=== PATIENT | male | born 1930 | race Caucasian/White ===

== ENCOUNTER → 2016-09-28 | Outpatient (CLI) | payer OTHER ==
[~2016-09-28] VITALS: Ht 172.7 cm; Wt 76.6 kg
[~2016-09-28] MED LIST: ASPIRIN EC81 M1 PO; COUMADIN 2 MG TA2 M1 PO; COUMADIN 5 MG TA5 M1 PO; DICLOFENAC SOD100 GM TP; ENALAPRIL MALEAT5 M1 PO; FISH OIL 1,0001 EAC7 PO; FLOMAX PO; FOLIC ACID 40400 MC1 PO; HYDROCHLOROTHIA25 M2 PO; IRON236 MG PO; LASIX 40 MG TAB40 M2 PO; LISINOPRIL10 MG PO; MOBIC15 MG PO; MULTIVITAMINS PO; PERCOCET 7.5-31 EACH PO; PROTONIX40 M1 PO; SIMVASTATIN40 MG PO; TAMSULOSIN HCL0.4 MG PO; TIZANIDINE HCL 22 M1 PO; TIZANIDINE HCL2 M1 PO; VESICARE 5 MG TA5 M1 PO; ZANTAC 150MG T150 M1 PO; ZOCOR PO
--- NOTE | ~2016-09-28 | HPC ---
[facility] [address] [place] [address] PAIN MANAGEMENT CONSULTATION Name: AGUEROJOHANNY Room #: REG MAYE Hightower#: [id number] Admission: 09/28/16 Attend Phys: Richie Cameron DO Discharge: Date of : 30 Report #: [id number] THIS REPORT FOR: //name// CC: Sal Cameron The patient is a very pleasant 86-year-old gentleman being treated for myofascial pain, history of thoracolumbar spondylosis and greater occipital neuralgia. He has done well with occasional trigger point injections, takes meloxicam 15 mg on a nondaily basis, last injection was 06/11/2016 with excellent relief, greater than 80% for several months, pain has gradually begun to recur in the mid back area, has discrete trigger points in 4 muscle groups, left and right lower thoracic paravertebral muscles and left and right upper lumbar paravertebral muscles. No radicular symptoms are noted. IMPRESSION: Myofascial pain. RECOMMENDATION: Trigger point injections today. Ice to the area, continue stretching and meloxicam p.r.n. on a nondaily basis and follow simply as needed. The patient cautioned about risk of pneumothorax with injection over the thoracic, lumbar paravertebral muscles. ASSESSMENT: Myofascial pain. PROCEDURE NOTE: Trigger point injections x 4. PROCEDURE: After written informed consent was obtained, the patient was placed in prone position. Skin overlying the low thoracic and upper lumbar paravertebral muscles, were cleansed with alcohol, using a 25-gauge needle, 40 mg triamcinolone plus 50:50 mix of 5 mL of 0.5% preservative-free bupivacaine plus 5 mL of 1.5% preservative-free Xylocaine with 1:200,000 epinephrine was injected distributed amongst the 4 discrete muscle groups and with multiple trigger points noted. [place] were removed. The area was cleansed, Band-Aids applied. The patient monitored for an appropriate period of time, discharged in good and stable condition. Followup as p.r.n. <ELECTRONICALLY SIGNED> By: Richie Cameron DO 10/03/16 1607 1606 2255 Richie Cameron DO /nt
[2016-09-28 13:56] VITALS: BP 142/54
== END ==
LOC: PAIN 07:23
DX: M79.1 Myalgia (principal); M47.815 Spondylosis without myelopathy or radiculopathy, thoracolumbar region; I10 Essential (primary) hypertension; Z87.891 Personal history of nicotine dependence

== ENCOUNTER → 2017-01-14 | Outpatient (CLI) | payer OTHER ==
[~2017-01-14] VITALS: Ht 172.7 cm; Wt 74.6 kg
--- NOTE | ~2017-01-14 | HPC ---
[facility] [address] [place] [address] PAIN MANAGEMENT CONSULTATION Name: AGUEROJOHANNY Room #: REG [facility] Campbell#: [id number] Admission: 01/14/17 Attend Phys: Richie Cameron DO Discharge: Date of : 30 Report #: [id number] THIS REPORT FOR: //name// CC: Sal Cameron The patient is a very pleasant 86-year-old gentleman, long treated for symptomatic myofascial pain. He does well with occasional trigger point injections, last trigger point injection was in May 2016. Prior he had had injection in January 2016 and June 2015. 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 Pain is in the mid to low back area from about T7 down to L4 bilateral. He has 6 discrete trigger point muscle groups, left and right each, low thoracic paravertebral muscles, upper lumbar paravertebral muscles and overlying latissimus dorsi. The patient notes pain is 0 at present, 8 with activity. PHYSICAL EXAMINATION: Shows an 86-year-old gentleman, BMI is 25 kilograms per meter squared. Vital signs stable. Alert and oriented to person, place and time, judged to be a reasonable historian. Rises from chair easily. Pain in the mid back area, is exacerbated with rotation and side bending, palpable muscle spasm and trigger points x 6 as noted above. ASSESSMENT: Myofascial pain. RECOMMENDATIONS: Trigger point injections x 6. Follow up simply as needed, ice to the area today. PROCEDURE NOTE: After written and informed consent was obtained including risk of infection and possible pneumothorax, the patient wished to proceed, was placed in the prone position. Skin overlying 6 discrete trigger points including the left and right low thoracic paravertebral muscles, left and right upper lumbar paravertebral muscles and overlying the left and right latissimus dorsi were identified, cleansed with alcohol. Using a 25-gauge needle, 80 mg triamcinolone plus 5 mL of 0.5% preservative-free bupivacaine plus 5 mL of 1.5% preservative-free Xylocaine with 1:200,000 epinephrine was injected. This has been amongst each of the 6 discrete triggers. Needle was removed, area was cleansed, Band-Aids applied. The patient was monitored for an appropriate period of time, discharged in good and stable condition. Follow up is as needed, use ice to the area today. Continue stretching. <ELECTRONICALLY SIGNED> By: Richie Cameron DO 01/16/17 0932 1521 0135 Richie Cameron DO /nt
[2017-01-14 13:11] VITALS: BP 129/59
== END | disposition home or self-care (01) ==
LOC: PAIN 01-11 06:51
DX: M79.1 Myalgia (principal); G89.29 Other chronic pain; Z87.891 Personal history of nicotine dependence; Z98.890 Other specified postprocedural states

== ENCOUNTER → 2017-07-04 | Outpatient (CLI) | payer OTHER ==
[~2017-07-04] VITALS: Ht 172.7 cm; Wt 75.8 kg
--- NOTE | ~2017-07-04 | HPC ---
[facility] [address] [place] [address] PAIN MANAGEMENT CONSULTATION Name: AGUEROJOHANNY Room #: REG MAYE Hightower#: [id number] Admission: 07/04/17 Attend Phys: Richie Cameron DO Discharge: Date of : 30 Report #: [id number] THIS REPORT FOR: //name// CC: Sal Cameron The patient is a delightful 86-year-old gentleman, typically treated for myofascial pain. We have done occasional trigger point injections, typically once or twice a year. Last trigger point injections were in December of this year. Prior to that, 2 trigger point injections in 2015. He uses Meloxicam on a nondaily basis. We discussed risks of coronary artery disease and risk factors with daily nonsteroidal anti-inflammatory use. He also does use a topical Voltaren gel, again with low (6-7% systemic absorption) primarily for his neck pain. He returns to pain clinic today noting that the last injection did afford a very good relief. 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 PHYSICAL EXAMINATION: Shows an 86-year-old gentleman, BMI is 25.4 kg/m2. Vital signs are stable as noted in the EMR. Rises from chair easily. Gait is tandem. Diffuse tenderness in the neck, though no discrete trigger points are noted here. He does have trigger points in the low thoracic and upper lumbar paravertebral muscles, bilateral, and the overlying latissimus dorsi, bilateral. Pain is exacerbated with some range of motion. Lower extremity strength is symmetric. ASSESSMENT: Myofascial pain with multiple trigger points. RECOMMENDATION: I have renewed the patient's Meloxicam 15 mg prescription for 30 tablets with 3 refills, again the patient takes it on a nondaily basis, perhaps 3-4 a week. I also renewed Voltaren gel, which he uses topically on a near daily basis, typically simply in the morning and primarily on his neck. PROCEDURE NOTE: After written and informed consent including risk of pneumothorax and infection, the patient wished to proceed with trigger point injections. He was placed prone. Skin overlying the trigger points identified in the low thoracic paravertebral muscles, left to right, upper lumbar paravertebral muscles, left to right, and overlying latissimus dorsi, left and right, were identified, cleansed with alcohol. Using a 25-gauge needle, approximately 30 mg triamcinolone plus 8 mL of 50:50 mix of 0.5% preservative-free bupivacaine plus 1.5% preservative-free Xylocaine with 1:200,000 epi was injected into and around the discrete 6 trigger points. All needles were removed, the area was cleansed, Band-Aids applied. The patient was monitored for an appropriate period of time, discharged in good and stable [address] [address] PAIN MANAGEMENT CONSULTATION Name: JOHANNY AGUERO Room #: REG MAYE Hightower#: [id number] Admission: 07/04/17 Attend Phys: Richie Cameron DO Discharge: Date of : 30 Report #: [id number] condition, told to use ice to the area today, continue range of motion stretch. Report to the ER if he has any change in symptoms, i.e., shortness of breath, acute chest pain, etc. <ELECTRONICALLY SIGNED> By: Richie Cameron DO 07/04/17 1527 1236 1404 Richie Cameron DO /nt
[2017-07-04 11:04] VITALS: BP 124/50
== END | disposition home or self-care (01) ==
LOC: PAIN 06-27 12:47
DX: M79.1 Myalgia (principal); G89.29 Other chronic pain; I25.10 Atherosclerotic heart disease of native coronary artery without angina pectoris; Z87.891 Personal history of nicotine dependence; Z88.0 Allergy status to penicillin; Z79.899 Other long term (current) drug therapy; Z98.890 Other specified postprocedural states

== ENCOUNTER → 2018-08-08 | Outpatient (CLI) | payer OTHER ==
[~2018-08-08] VITALS: Ht 172.7 cm; Wt 74.4 kg
[2018-08-08 12:46] VITALS: BP 155/62
== END | disposition home or self-care (01) ==
LOC: PAIN 07:27
DX: M79.18 Myalgia, other site (principal); Z88.0 Allergy status to penicillin; Z79.899 Other long term (current) drug therapy; Z87.891 Personal history of nicotine dependence

== ENCOUNTER → 2019-03-18 | Outpatient (CLI) | payer OTHER ==
[~2019-03-18] VITALS: Ht 172.7 cm; Wt 73.0 kg
[~2019-03-18] MED LIST changes: +TRAMADOL 50 MG50 MG PO; +VESICARE 5 MG TA5 MG PO
--- NOTE | ~2019-03-18 | HPC ---
[facility] [address] [place] [address] PAIN MANAGEMENT CONSULTATION Name: JOHANNY AGUERO Room #: REG [facility] Andrew.#: [id number] Admission: 03/18/19 ������������������ Attend Phys: Althea Galo MD Discharge: ������������������ Date of : 30 Report #: [id number] THIS REPORT FOR: //name// CC: GUANAKITO Galo DATE OF SERVICE: 03/18/2019 CHIEF COMPLAINT: Pain in the back that was helped by injections has returned. HISTORY: The patient is an 88-year-old gentleman who has been seen in the past because of myofascial pain in his back. He underwent a trigger point injection in 07/2018. He noted significant improvement in the back pain. He returns today indicating that his pain has reoccurred. He has pain in the mid back area and rates it as a 2/10. Describes it as chronic, crampy, achy, and intermittent. 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 Notes his pain improves somewhat when he rests as well as when he reclines in a chair. He denies any new pains other than the usual discomfort in the low back area. He has tried Voltaren gel. ALLERGIES: PENICILLIN. CURRENT MEDICATIONS: Meloxicam 15 mg, diclofenac gel to the affected area of his neck b.i.d., iron 236 mg, lisinopril 10 mg, Protonix 40 mg b.i.d., Lasix 20 mg daily, simvastatin 40 mg, multivitamins, folic acid , and Flomax. PAIN CLINIC ASSESSMENT/PQRS: 1. The patient is not being treated for rheumatoid arthritis or osteoarthritis. 2. Height 5 feet 8 inches, weight 161 pounds, BMI is 24.5. 3. Vital signs: Blood pressure 115/77, pulse 65, respiratory rate 16, room air saturation 97%. 4. Pain intensity 11/02. 5. Fall history. The patient has not fallen in the last 3 months. 6. Blood thinner. The patient is not on a blood thinning medications. 7. Hypertension. The patient is being treated for hypertension. 8. Opiates greater than 6 weeks. The patient received medication from 1 source the pain clinic. 9. Risk assessment tool, low for opioid use. 10. Functional assessment tool . 11. Recreational drug use. The patient denies use of recreational drugs. 12. Tobacco: The patient is a former smoker. 13. Alcohol: The patient denies use of alcoholic beverages. PHYSICAL EXAMINATION: GENERAL: The patient is a well-developed, well-nourished white male. Appears [facility] [address] [place] [address] PAIN MANAGEMENT CONSULTATION Name: LACIJOHANNY Room #: REG MAYE Hightower#: [id number] Admission: 03/18/19 ������������������ Attend Phys: Althea Galo MD Discharge: ������������������ Date of : 30 Report #: [id number] his stated age. He is alert and oriented x 3. His affect is appropriate. Speech is fluent. HEENT: Normocephalic, atraumatic. Extraocular eye muscles intact. Sclerae nonicteric. Mucous membranes are moist. NECK: Without adenopathy or JVD. HEART: Regular rate. ABDOMEN: Nontender. Bowel sounds present. EXTREMITIES: Upper extremity muscle strength is judged to be 4+1 for the major muscle groups in the upper extremity. The patient has some pain and discomfort in the low back area. This pain is described as achy, crampy, and intermittent. IMPRESSION: 1. Myofascial pain. 2. History of cervical spondylosis. 3. Hypertension. RECOMMENDATIONS: We discussed treatment options with the patient. Risks and benefits of a trigger point injection were discussed. Possible complications of the procedure, which could include an increased muscle pain, no improvement in pain, worsening of discomfort and the patient elects to proceed. PROCEDURE NOTE: The patient was placed in a sitting position on the table. He was placed perpendicular to the . A chair was placed under his feet for support. The patient's back was sterilely prepped with a Betadine solution and allowed to dry. A trigger point was noted in the lower mid back at approximately T7/T8. This area was then palpated. The trigger point was noted. A 25-gauge needle was then advanced into the area of discomfort. Aspiration was negative for air. Total of 8 mL of 0.5% bupivacaine and 40 mg triamcinolone was injected. The patient tolerated the procedure well. There were no complications. His pain decreased to 0 at the time of discharge. He will follow up in the future as needed. We would like to thank you for letting us participate in his care. We hope he continues to improve. ��������������������������������������������� ���������������������������������������� By: ��������������������������������������������� 0822 1453 Althea Galo MD /PAOLA
[2019-03-18 11:23] VITALS: BP 115/77
== END | disposition home or self-care (01) ==
LOC: PAIN 06:54
DX: M79.18 Myalgia, other site (principal); G89.29 Other chronic pain; I10 Essential (primary) hypertension; Z87.891 Personal history of nicotine dependence; Z88.0 Allergy status to penicillin; Z79.899 Other long term (current) drug therapy; Z98.890 Other specified postprocedural states

== ENCOUNTER 2019-09-04 10:41 | Inpatient (IN) | payer OTHER ==
[~2019-09-04] VITALS: Ht 172.7 cm; Wt 73.5 kg
[~2019-09-04 10:41] MED LIST changes: +MELOXICAM15 MG PO
[2019-09-04 11:30] VITALS: BP 156/44
[2019-09-04 12:18] LABS: CALCIUM 9.1 mg/dL (8.5-10.1); CREATININE 1.4 mg/dL (0.7-1.3)
--- NOTE | 2019-09-04 15:29 | O ---
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 PROCEDURE: Excision of loosened patellar component, right total knee arthroplasty. SURGEON: John Thorne MD INDICATIONS: This 89-year-old gentleman underwent right total knee replacement a number of years ago. He is functioning very well and is fully independent. He is in an assisted living facility, but seems to be fully alert and fully functional and is ambulating independently without the use of a cane or walker; however, he has a small sinus tract along the medial border of the right knee. Clinical and radiographic exam suggest a complete loosening of the patellar component, which is now positioned in the subcutaneous tissues and is eroding up through the skin. We have discussed that this probably involves the entire knee and he may have a joint infection. Given this, we have discussed treatment options including complete explantation of the entire joint or simple removal of the loosened patellar component followed by appropriate antibiotic management. The patient and family note that he is really quite functional and fully independent and has no significant subjective symptoms or problems at this point. Consequently, they prefer to avoid major surgical procedure with a total knee revision or explantation. Instead, they prefer to simply remove the prominent polyethylene component and then try to manage this more conservatively with IV antibiotics and then oral antibiotics for suppression if necessary. DESCRIPTION OF PROCEDURE: The patient was taken to the operating room where he was placed under brief general anesthetic. The right knee and leg were meticulously prepped and draped. A small elliptical skin incision was made over the slightly enlarging sinus tract where the patellar component was obviously prominent. The patellar component was easily grasped and removed. The tract was then easily palpated down to the joint with my fingertip. There was no purulence, but there was a small amount of serous drainage. The side sykes of the sinus tract were lightly debrided. The sinus tract and the joint itself was [address] [address] OPERATIVE REPORT Name: JOHANNY AGUERO Room #: 150-4 [facility]..#: [id number] Admission: 09/04/19 Attend Phys: John Thorne MD Discharge: Date of : 30 Report #: [id number] then aggressively and copiously irrigated with about 5 liters of antibiotic solution with power lavage. There was no significant bleeding and no evidence of purulence. I cannot determine if other components might be loosened with this limited exposure. Based on the patient's wishes, however, I elected not to make a much more aggressive exposure and simply washed the knee and proceed with initial closure. This was accomplished with some deeper retention sutures, which were placed to close the sinus tract and deeper tissues. These were left such that the sutures could be removed. No deep sutures were employed. The skin edges were then reapproximated with multiple skin edita. A sterile dressing was applied. The patient was then awakened and returned to recovery room in good condition. I have discussed these issues with the patient and his family and also with Dr. Singh from Infectious Disease. Our current plan is to keep him here until we can get some results from the culture and monitor his clinical response. Pending this, we will make the best decision we can about ongoing antibiotic coverage in hopes we can avoid further surgical debridement if possible. I would anticipate he will be here in the hospital for at least a couple of days until we can make those decisions and then probably back to his extended care facility where we will plan to continue with appropriate antibiotic coverage as long as necessary. <ELECTRONICALLY SIGNED> By: John Thorne MD 09/04/19 1529 1455 1512 John Thorne MD /nt
[2019-09-04 16:30] VITALS: BP 178/80
[2019-09-04 17:00] VITALS: BP 184/78
--- NOTE | 2019-09-04 19:37 | NUR ---
Pt arrived to floor from recovery room at 1630 in stable condition.Post op vss.Admission hx,care plan completed.dinner given and well tolerated.Report off to michael rn.
[2019-09-04 20:20] VITALS: BP 117/50
--- NOTE | 2019-09-05 02:21 | NUR ---
ASSUMED PT CARE AT 1900. VANC FINISHED AND NS STARTED. PT DENIES ANY PAIN. BEGAN WEANING OFF OXYGEN, PT TOLERATED WELL. RT KNEE DRESSING DRY AND INTACT. PT SLEPT MAJORITY OF EVENING.
[2019-09-05 03:46] VITALS: BP 128/49
[2019-09-05 04:37] LABS: ALBUMIN 2.6 g/dL (3.4-5.0); CALCIUM 8.6 mg/dL (8.5-10.1); CREATININE 1.3 mg/dL (0.7-1.3); POTASSIUM 4.4 mmol/L (3.5-5.1); TOTAL BILIRUBIN 0.4 mg/dL (<0.1-1.0); TOTAL PROTEIN 6.3 g/dL (6.4-8.2)
[2019-09-05 05:06] LABS: ABSOLUTE NEUTROPHILS 5.1 thou/uL (1.4-8.2); BASOPHILS 0.2 % (0.0-2.0); HEMATOCRIT 33.4 % (42.0-52.0); HEMOGLOBIN 11.2 gm/dL (14.0-18.0); LYMPHOCYTES 8.8 % (24.0-44.0); MCH 32.2 pg (26.0-34.0); MCHC 33.5 g/dL (28.0-37.0); MCV 95.9 fL (80.0-100.0); MONOCYTES 6.5 % (1.0-8.0); PLATELET COUNT 190 thou/uL (150-400); POLYS 84.5 % (36.0-66.0); RBC 3.49 mil/uL (4.50-6.00); RDW 13.8 % (10.5-14.5); WBC 6.1 thou/uL (4.0-11.0)
[2019-09-05 07:45] VITALS: BP 151/65
--- NOTE | 2019-09-05 09:39 | EKG ---
[address] [address] ELECTROCARDIOGRAM REPORT Name: JOHANNY AGUERO Room #: 446-P [facility].#: [id number] Admission: 09/04/19 Attend Phys: John Thorne MD Discharge: Date of : 30 Report #: [id number] THIS REPORT FOR: //name// [facility] Test Date: 2019-09-04 Test Time: 11:22:25 Pat Name: JOHANNY AGUERO Department: Room: 150 4 Gender: M Proj Engineer: Chris ZENDEJAS : 1930 Requested By: John Thorne Order Number: [id number] MD: Erickson Hadley Measurements Intervals [place] Rate: 53 P: 66 UT: 178 QRS: -11 QRSD: 121 T: 42 QT: 492 QTc: 462 Interpretive Statements Sinus bradycardia Nonspecific intraventricular conduction delay Compared to ECG 02/26/2012 13:06:06 No significant change was found Electronically Signed On 09-05-2019 9:39:09 METAL SPONGE MAKING MACHINE OPERATOR by Erickson Hadley [email or web address] <ELECTRONICALLY SIGNED> By: Erickson Hadley MD, [facility] 09/05/19 0939 21 21 Erickson Hadley MD, [facility] /EPI
[2019-09-05 15:59] VITALS: BP 148/53
--- NOTE | 2019-09-05 19:02 | NUR ---
PT ASSESSED AT START OF SHIFT. RT KNEE MELITON WRAP IN PLACE. GOOD CIRC/SENS TO TOES. DENIES PAIN. WALKED IN THE HALLS W/ THERAPY AND DID WELL. SAT UP IN THE CHAIR MOST OF SHIFT. RESTARTED ON HIS FLOMAX THIS AFTERNOON AFTER URINARY RETENTION. PVR THIS AM WAS 370 AND STR CATHED 350. THIS AFTERNOON VOIDED 125 AND PVR 154. EATING AND DRINKING VERY WELL.
[2019-09-05 22:25] VITALS: BP 167/53
--- NOTE | 2019-09-05 23:50 | NUR ---
PT LYING IN BED. VOIDING PER URINAL. DENIES NEED FOR PAIN MEDICATION. RESTING COMFORTABLY. NO NEEDS VOICED. CALL LIGHT WITHIN REACH. WILL CONTINUE TO PROVIDE FREQUENT OBSERVATION.
[2019-09-06 07:18] LABS: URINE BILIRUBIN NEGATIVE (Negative); URINE BLOOD NEGATIVE (Negative); URINE CLARITY CLEAR; URINE COLOR YELLOW; URINE GLUCOSE-RANDOM* NEGATIVE (Negative); URINE KETONES NEGATIVE (Negative); URINE LEUKOCYTES NEGATIVE (Negative); URINE NITRITE NEGATIVE (Negative); URINE PROTEIN (DIPSTICK) NEGATIVE (Negative); URINE UROBILINOGEN 0.2 E.U./dl (0.2-1.0)
--- NOTE | 2019-09-06 10:47 | NUR ---
PT ASSESSED AT START OF SHIFT. PT SLEPT WELL. FEELING GOOD-NO PAIN. RT KNEE MELITON WRAP INTACT. AMBULATING W/ WALKER W/ STANDBY ASSIST. URINATION RETURNED TO NORMAL SINCE TAKING FLOMAX YESTERDAY. NEW IV SITE LAST EVENING. CONT. IV VANCO.
[2019-09-06 15:02] VITALS: BP 145/55
--- NOTE | 2019-09-06 15:45 | NUR ---
PT TRANSFERRED TO THIS UNIT, ARRIVED AOX4, VSS, & NO C/O PAIN. PT CURRENTLY IN BED WITH CALL LIGHT IN REACH/PERSONAL ITEMS. DRESSING APPEARS CLEAN, DRY, & INTACT. IV ON RIGHT WRIST IS SALINE LOCKED. PT CALLS APPROPRIATELY, WILL CONTINUE TO MONITOR.
[2019-09-06 19:20] VITALS: BP 141/48
--- NOTE | 2019-09-07 05:20 | NUR ---
PATIENT ALERT AND ORIENTED X4. HOLY CROSS. UP WITH ASSIST OF 1 AND WALKER. DENIES PAIN. DRESSING ON R KNEE D/I. SLEPT OFF AND ON DURING NIGHT.
[2019-09-07 07:50] VITALS: BP 172/63
--- NOTE | 2019-09-07 10:36 | NUR ---
INITIAL ASSESSMENT: Pt evaluated for d/c planning needs. . Reviewed chart and spoke with nurse and pt. Pt is alert and oriented. Pt lives in independent apartment with at [facility]. Pt remains active in the community and is still driving. Pt had [facility] home health in the past. Pt plans on returning home on d/c from hospital. Will remain available to assist as needed.
[2019-09-07 15:40] VITALS: BP 147/53
--- NOTE | 2019-09-07 18:20 | NUR ---
Received from previous day shift nurse Kristel at 1130. Pt awake on bed. Due medications given as prescribed, able to swallow meds w/o difficulty. On room air. Vital signs stable. With SL at R wrist- intact, dressing changed today. With dressing at Rt knee- C/D/I- dressing changed today. Assisted in ADLs. Falls bundle in place. Visited by relative today. Pt seen by Dr Oropeza today- for labs in am, a/w ID recommendation re: antibiotics. Pt seen by Dr Thorne- no surgical plans as of the moment, pt prefers conservative treatment for now. Pt seen by Dr Jay Jay Singh this afternoon- with orders for CM for antibiotic treatment- checked CM office and they already left, shift stacker nurse informed to let CM ready Dr Singh's notes re: home antibiotic treatment. IV nurse informed re: PICC line insertion, Staff Addy informed and asked if pt has discharge orders yet- informed them there is none yet, will see pt for PICC line insertion once pt has discharge orders. To continue monitoring patient. Vancomycin trought taken at 1730.
[2019-09-07 20:47] VITALS: BP 162/59
--- NOTE | 2019-09-08 04:42 | NUR ---
ASSUMED PT CARE ON 09/07/19. PT IS A&OX3 AND FORGETFUL. PT HAS NO COMPLAINTS OF PAIN. PT SETS OFF THE BED ALARM THREE TIMES THEN ASKS TO HAVE THE BED ALARM TURNED OFF. I EXPLAINED TO HIM THAT WHILE IN THE HOSPITAL ON THIS VISIT THE BED ALARM IN ON FOR HIS SAFETY. I PUT SCDS ON BILATERAL EXTREMETIES. PT STATES AT 0200 THAT HE NO LONGER WANTS THEM PLUGGED UP. THE PT USES THE URINAL AT THE BEDSIDE. THE PT TOOK HIS EVENING MEDICATION. 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 THE PT IS RESTING AND HAS STARTED CALLING OUT APPROPRIATELY WHEN HE NEEDS TO GET UP. WILL CONTINUE TO MONITOR.
[2019-09-08 05:32] LABS: CALCIUM 8.7 mg/dL (8.5-10.1); CREATININE 1.2 mg/dL (0.7-1.3); POTASSIUM 3.9 mmol/L (3.5-5.1)
[2019-09-08 05:35] LABS: HEMOGLOBIN 10.7 gm/dL (14.0-18.0); MCH 31.3 pg (26.0-34.0); MCHC 32.6 g/dL (28.0-37.0); MCV 96.1 fL (80.0-100.0); RBC 3.43 mil/uL (4.50-6.00); RDW 13.7 % (10.5-14.5); WBC 4.8 thou/uL (4.0-11.0)
[2019-09-08 08:13] VITALS: BP 132/80
--- NOTE | 2019-09-08 11:42 | NUR ---
Following for d/c planning needs. Received order from physician to arrange IVAB. Spoke at length with pt and pt's . They do not want to go to SNF on d/c. Pt was given options of home with home health, outpatient infusion and SNF. Pt wants to go home with home health. Contacted [facility] and will await return call re: co-pay for medication.
[2019-09-08 12:29] VITALS: BP 136/80
[2019-09-08 12:37] VITALS: BP 136/80
[2019-09-08] MEDS ORDERED: VANCO 1.51.5 GM/500 IV (15:13)
[2019-09-08] MEDS ORDERED: RIFAMPIN 300 M300 MG (15:15)
--- NOTE | 2019-09-08 15:37 | NUR ---
VASCULAR ACCESS TEAM CONSULTED FOR PICC PLACEMENT PRIOR TO DISCHARGE. DISCUSSED BENEFITS AND RISK OF PICC WITH PT, VERBALIZED UNDERSTANDING. ZAIN BASILIC WAS WIDELY PATENT WITH USG. 4FR SL POWER PICC TRIMMED TO 40CM INSERTED TO 0CM WITH BRISK BR. STAT CXR ORDERED. PT TOLERATED WELL.
--- NOTE | 2019-09-08 15:48 | NUR ---
CXR CONFIRMED PLACEMENT OF PICC IN SVC. PICC RELEASED FOR IMMEDIATE USE PER PROTOCOL TO ADITHYA BRAR.
--- NOTE | 2019-09-08 18:15 | NUR ---
Assumed pt care this am, VS stable, uses the urinal and had no issues voiding. Diet and medication is well tolerated. b and b gang worker facilitated home infusions, PICC line placed by the IV team on the right FA, confirmed placement and faxed to the infusion team. Peripheral IV removed, last dose of Vanco given, long leg EDUARD hose bilateral given to the pt since daughter did not want this placed as the pt was already dressed and they were ready to go. DC instructions given to the pt and daughter. Pt is now DC.
== END 2019-09-08 18:23 | disposition home health service (06) | DRG 463 ==
LOC: OR 10:41 → TBA 10:44 → EDSTATUS 11:11 → OR 11:13 → TBA 15:46 → 4S 17:18 → OR 17:19 → 4N 17:19 → 4S 17:19 → 4N 09-06 14:30
PROVIDERS: Internal Medicine; ADMIT Orthopaedic Surgery
PROC: 0SPC0JZ Removal of Synthetic Substitute from Right Knee Joint, Open Approach (ICD-10-PCS; principal; 2019-09-04)
PROC: 02HV33Z Insertion of Infusion Device into Superior Vena Cava, Percutaneous Approach (ICD-10-PCS; 2019-09-08)
PROC: B548ZZA Ultrasonography of Superior Vena Cava, Guidance (ICD-10-PCS; 2019-09-08)
DX: T84.53XA Infection and inflammatory reaction due to internal right knee prosthesis, initial encounter (principal); E43 Unspecified severe protein-calorie malnutrition; N17.9 Acute kidney failure, unspecified; T84.196A Other mechanical complication of internal fixation device of bone of right lower leg, initial encounter; D64.9 Anemia, unspecified; N40.0 Benign prostatic hyperplasia without lower urinary tract symptoms; E78.5 Hyperlipidemia, unspecified; Z88.0 Allergy status to penicillin; Z79.899 Other long term (current) drug therapy; Y83.8 Other surgical procedures as the cause of abnormal reaction of the patient, or of later complication, without mention of misadventure at the time of the procedure; Y92.89 Other specified places as the place of occurrence of the external cause
CPT/HCPCS: 10102; 10790; 27000; 50010; 50101; 50386; 51412; 53078; 56528; 57091; 57103; 57179; 62110; 62900; 70005

== ENCOUNTER → 2020-03-30 | Outpatient (CLI) | payer OTHER ==
[~2020-03-30] VITALS: Ht 172.7 cm; Wt 72.5 kg
[~2020-03-30] MED LIST changes: +RIFAMPIN 300 M300 MG; +VANCO 1.51.5 GM/500 IV; +VOLTAREN GEL 1100 G1 TOP
[2020-03-30 13:23] VITALS: BP 130/66
--- NOTE | 2020-03-30 13:30 | NUR ---
Pain Clinic Assessment: 1. History of Osteoarthritis: NO History of Rheumatoid Arthritis: NO 2. Height: 5 ft. 8 in. 172.7 cm. Weight: 159.8 lb. oz. 72.485 kg. Patient's BMI: 24.3 3. Vital Signs: BP: 130/66 Pulse: 67 Resp: 16 Temp: 02 Sat: 96 ECG Mon: 4. Pain Intensity: 2 5. Fall Risk: Dizziness: N Needs help standing or walking: N Fallen in the last 3 months: N Fall risk comments: 6. Patient on Blood Thinner: None 7. History of Hypertension: Y 8. Opioid Therapy greater than 6 weeks: N Opiate Contract Signed: 9. Risk Assessment Tool Provided: LOW-0 10. Functional Assessment Tool: 11. Recreational Drug Use: Never Drug Type: Tobacco Use: Never Smoker Tobacco Type: Amount or Packs/day: How Many Years: Alcohol Use: No Frequency: Quant:
--- NOTE | 2020-04-15 08:56 | HPC ---
[facility] [place] [address] [place] [address] PAIN MANAGEMENT CONSULTATION Name: JOHANNY AGUERO Room #: REG [facility].#: [id number] Admission: 03/30/20 Attend Phys: Althea Galo MD Discharge: Date of : 30 Report #: [id number] THIS REPORT FOR: cc: LAURA FITZGERALD Physician not on staff Althea Galo MD ~ CC: Althea Galo Physician staff LAURA FITZGERALD DATE OF SERVICE: 03/30/2020 CHIEF COMPLAINT: Mid back and neck pain. HISTORY: The patient is an 89-year-old gentleman who has been seen in the pain clinic in the past because of back pain. He underwent trigger point injections in 02/2019. He returns today indicating that he would like to have a renewal of his medication. He underwent surgery in 08/2019. 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 He developed some infection. He was treated with vancomycin. He also was seen by the ENT doctor. He suffered from a deviated septum. He has returned to the pain clinic today for renewal of his medications. He feels that the meloxicam medication as well as the Voltaren gel were helpful. States that his back improved after trigger point injection in 02/2019. His back has been tolerable since that time. It has not been bothering him. He would like to have his medications renewed. ALLERGIES: PENICILLIN. CURRENT MEDICATIONS: VESIcare 5 mg, iron 236 mg, lisinopril 10 mg, Protonix 40 mg b.i.d., Lasix 40 mg, Zocor 40 mg, multivitamins, folic acid 400 mcg, Flomax 0.4 mg. PAIN CLINIC ASSESSMENT AND PQRS: 1. The patient is not being treated for rheumatoid arthritis or osteoarthritis. 2. Height 5 feet 8 inches, weight 159 pounds, BMI 24. 3. Vital Signs: Blood pressure 130/66, pulse 67, respiratory rate 16, room air saturation 96%. 4. Pain intensity, 11/02. 5. Fall history. The patient has not fallen in the last 3 months. 6. Blood thinner. The patient is not on a blood thinning medication. 7. Hypertension. The patient is being treated for hypertension. 8. Opioids greater than 6 weeks. The patient is not receiving opioid medications. 9. Risk assessment tool, low for opioid use. 10. Functional assessment tool, . 11. Recreational drug [place] [id number] PAIN MANAGEMENT CONSULTATION Name: JOHANNY AGUERO [id number] Admission: 03/30/20 Attend Phys: Althea Galo MD Discharge: Date of : 30 Report #: [id number] 12. Tobacco. The patient has never smoked. 13. Alcohol. The patient denies frequent use of alcoholic beverages. PHYSICAL EXAMINATION: GENERAL: The patient is a well-developed, well-nourished, white male. Appears his stated age. He is alert and oriented x 3. His affect is appropriate. Speech is fluent. HEENT: Normocephalic, atraumatic. Extraocular eye muscles intact. Sclerae nonicteric. Mucous membranes are moist. The patient is wearing a mask. NECK: Without adenopathy or JVD. HEART: Regular rate. ABDOMEN: Nontender. BACK: The patient is not having much in the way of trigger points at this juncture. EXTREMITIES: Upper extremity muscle strength judged to be 4/5 for the major muscle groups in the upper extremity. The patient has some discomfort in the low back area. He is not showing signs of any specific trigger points. IMPRESSION: 1. Myofascial pain history. 2. History of cervical spondylosis. 3. Hypertension. RECOMMENDATIONS: At this juncture, we will continue with the patient on a conservative approach. He does not feel that his pain is causing a significant amount of discomfort. We will continue with Voltaren gel to the affected area 4 times daily. He will also continue with meloxicam 15 mg. The patient will continue to monitor his GI status. Should he note some pain or discomfort, he will stop taking the Mobic medication. He is taking Protonix. We would like to thank you for letting us participate in his care. If he notes that his pain becomes more problematic in the back area, he will return to the pain clinic, at which time he will be considered for the possibility of trigger point injections. <ELECTRONICALLY SIGNED> By: Althea Galo MD 04/15/20 [id number] Althea Galo MD /[facility]
== END ==
LOC: PAIN 06:55
PROVIDERS: ATTEND Anesthesiology Pain Medicine
DX: M54.2 Cervicalgia (principal); M54.9 Dorsalgia, unspecified; I10 Essential (primary) hypertension; F11.20 Opioid dependence, uncomplicated; Z87.39 Personal history of other diseases of the musculoskeletal system and connective tissue; Z88.8 Allergy status to other drugs, medicaments and biological substances; Z79.899 Other long term (current) drug therapy

== ENCOUNTER → 2020-04-20 | Outpatient (CLI) | payer OTHER ==
[~2020-04-20] VITALS: Ht 172.7 cm; Wt 73.8 kg
[~2020-04-20] MED LIST changes: +BACTRIM DS TAB1 EAC1 PO
[2020-04-20 09:55] VITALS: BP 152/68
--- NOTE | 2020-04-20 10:15 | NUR ---
Pain Clinic Assessment: 1. History of Osteoarthritis: NO History of Rheumatoid Arthritis: NO 2. Height: 5 ft. 8 in. 172.7 cm. Weight: 162.8 lb. oz. 73.846 kg. Patient's BMI: 24.8 3. Vital Signs: BP: 152/68 Pulse: 62 Resp: 16 Temp: 02 Sat: 100 ECG Mon: 4. Pain Intensity: 3 5. Fall Risk: Dizziness: N Needs help standing or walking: N Fallen in the last 3 months: N Fall risk comments: 6. Patient on Blood Thinner: None 7. History of Hypertension: Y 8. Opioid Therapy greater than 6 weeks: N Opiate Contract Signed: 9. Risk Assessment Tool Provided: LOW-0 10. Functional Assessment Tool: 11. Recreational Drug Use: Never Drug Type: Tobacco Use: Never Smoker Tobacco Type: Amount or Packs/day: How Many Years: Alcohol Use: No Frequency: Quant:
--- NOTE | 2020-04-28 23:54 | HPC ---
[facility] [place] [address] [place] [address] PAIN MANAGEMENT CONSULTATION Name: JOHANNY AGUERO Room #: REG [facility].#: [id number] Admission: 04/20/20 Attend Phys: Althea Galo MD Discharge: Date of : 30 Report #: [id number] THIS REPORT FOR: cc: LAURA FITZGERALD Physician not on staff Althea Galo MD ~ CC: Althea Galo Physician staff LAURA FITZGERALD DATE OF SERVICE: 04/20/2020 CHIEF COMPLAINT: Mid back and neck pain. HISTORY: The patient is an 89-year-old gentleman who has been seen in the pain clinic because of chronic pain. He is experiencing pain in the mid back area. He has trigger points in the low back area. He would like to have these injected. He is on a chronic regimen of antibiotics because his right knee. CURRENT MEDICATIONS: VESIcare 5 mg, iron 236 mg, lisinopril 10 mg, Protonix 40 mg b.i.d., Lasix 40 mg, Zocor 40 mg, folic acid 400 mcg, Flomax 0.4 mg. He does not feel that there is significant infection ongoing and it is a problem and it is reasonable to consider trigger point injections with use of steroids. Bactrim-DS. PAIN CLINIC ASSESSMENT AND PQRS: 1. The patient is not being treated for rheumatoid arthritis or osteoarthritis. 2. Height 5 feet 8 inches, weight 162 pounds, BMI is 24.8. 3. Vital Signs: Blood pressure 152/68, pulse 62, respiratory rate 16, room air saturation 100%. 4. Pain intensity, 11/30. 5. Fall history. The patient has not fallen since we saw him last. 6. Blood thinner. The patient is not on a blood thinning medication. 7. Hypertension. The patient is being treated for hypertension. 8. Opioids greater than 6 weeks. 9. Risk assessment tool, low for opioid use. 10. Functional assessment tool, . 11. Recreational drug use. The patient denies use of recreational drugs. 12. Alcohol. The patient denies frequent use of alcoholic beverages. PHYSICAL EXAMINATION: GENERAL: The patient is a well-developed, well-nourished, white male. Appears his stated age. He is alert and oriented x 3. His affect is appropriate. Speech is fluent. He is wearing a mask. HEENT: Normocephalic, atraumatic. Extraocular eye muscles intact. Sclerae nonicteric. [facility] [address] [place] [address] PAIN MANAGEMENT CONSULTATION Name: JOHANNY AGUERO Room #: REG [facility]#: [id number] Admission: 04/20/20 Attend Phys: Althea Galo MD Discharge: Date of : 30 Report #: [id number] NECK: Without adenopathy or JVD. HEART: Regular rate. ABDOMEN: Nontender. BACK: The patient has pain and discomfort in 4 trigger point areas. The patient has a trigger point in the left rhomboid area. He has a trigger point in the left posterior superior iliac spine area. The third trigger point is in the right chest area. Again, the fourth was in the serratus posterior inferior. IMPRESSION: 1. Myofascial pain trigger points. 2. History of cervical spondylosis. 3. Hypertension. RECOMMENDATIONS: We discussed treatment options with the patient. Risks and benefits of an injection were discussed. Again, we reviewed with the patient the risks and benefits of an injection. Possible complications of the procedure could include infection, worsening of pain, no improvement in pain, pneumothorax and nerve damage. The patient elects to proceed. PROCEDURE NOTE: The patient was taken to the procedure area. He was then assisted in getting on the examination table. The patient sat perpendicular to the table. #1 His back was sterilely prepped with a Betadine solution. In the left rhomboid area, a trigger point was noted. A 25-gauge needle was then advanced into the area. A total of 5 mL of 0.5% bupivacaine and 10 mg triamcinolone was injected. #2 Left trigger point in the area of the posterior superior iliac spine area was identified. A total of 5 mL of 0.5% bupivacaine and 10 mg triamcinolone was injected. #3 A third trigger point injection in the right area of the superior iliac spine was identified. A total of 5 mL of 0.5% bupivacaine and 10 mg triamcinolone was injected. #4 Fourth trigger point identified in the right serratus posterior inferior and 10 mg triamcinolone and 5 mL of 0.5% lidocaine was injected. The patient tolerated the procedures well. Had no breathing problems at the time of discharge. He will follow up in the future. We would like to thank you for letting us participate in his care. We hope he continues to improve. <ELECTRONICALLY SIGNED> By: Althea Galo MD 04/28/20 [id number] Althea Galo MD /[facility]
== END | disposition home or self-care (01) ==
LOC: PAIN 06:49
PROVIDERS: ATTEND Anesthesiology Pain Medicine
DX: M79.18 Myalgia, other site (principal); I10 Essential (primary) hypertension; Z98.890 Other specified postprocedural states; Z79.899 Other long term (current) drug therapy; Z88.0 Allergy status to penicillin; Z79.2 Long term (current) use of antibiotics